=== PATIENT | female | born 1970 | race Caucasian/White ===

== ENCOUNTER 2019-10-15 12:10 | Emergency (ER) | payer OTHER ==
[2019-10-15] MEDS ORDERED: fentaNYL 100 MCG/2 ML SDV IVPUSH ONE ×2 (13:20→15:34)
[2019-10-15] MEDS ORDERED: diphenhydrAMINE 50 MG/ML SDV IV ONE (13:20)
[2019-10-15] MEDS ORDERED: Sodium Chloride 0.9% 10 ML Syringe FLUSH PRN (13:21)
--- NOTE | 2019-10-15 14:25 | EDM.PDOC ---
ED HPI GENERAL MEDICAL PROBLEM - General Chief Complaint: Lower Extremity Injury/Pain Stated Complaint: L foot pain Time Seen by Provider: 10/15/19 12:26 Source of Information: Reports: Patient History Limitations: Reports: No Limitations - History of Present Illness INITIAL COMMENTS - FREE TEXT/NARRATIVE: Left foot pain after stepping in depression in lawn at home. Fell. No other complaints/injuries reported. Unable to bear weight. Left Foot Pain Score (Numeric/FACES): 7 - Related Data Allergies Allergy/AdvReac Type Severity Reaction Status Date / Time hydromorphone [From Dilaudid] Allergy Hives Verified 10/15/19 14:29 ketorolac [From Toradol] Allergy Hives Verified 10/15/19 14:29 oxycodone Allergy Hives Verified 10/15/19 14:29 tramadol Allergy Hives Verified 10/15/19 14:29 Home Meds: Home Meds Codeine Sulfate 15 mg PO Q6HR #10 tab 10/15/19 [Rx] Review of Systems - Review of Systems Review Of Systems: See Below Eyes: Reports: No Symptoms Ears: Reports: No Symptoms Nose: Reports: No Symptoms Mouth/Throat: Reports: No Symptoms Respiratory: Reports: No Symptoms Cardiovascular: Reports: No Symptoms GI/Abdominal: Reports: No Symptoms Genitourinary: Reports: No Symptoms Musculoskeletal: Reports: Foot Pain Skin: Reports: No Symptoms Neurological: Reports: No Symptoms Psychiatric: Reports: No Symptoms ED EXAM, GENERAL - Physical Exam Exam: See Below Exam Limited By: No Limitations General Appearance: Alert, WD/WN, No Apparent Distress Throat/Mouth: Normal Lips, Normal Voice, No Airway Compromise Head: Atraumatic, Normocephalic Neck: Supple Respiratory/Chest: No Respiratory Distress Extremities: Other (swelling/pain noted midfoot on left side. Ankles and toes nontender. NVI. ) Neurological: Alert, Oriented, Normal Cognition Psychiatric: Normal Affect, Normal Mood Course - Vital Signs Last Recorded V/S: Last Vital Signs Temp 36.8 C 10/15/19 12:11 Pulse 71 10/15/19 12:11 Resp 18 10/15/19 12:11 BP 106/84 10/15/19 12:11 Pulse Ox 96 10/15/19 12:11 - Orders/Labs/Meds Orders: Active Orders 24 hr Category Date Time Status Foot Comp Min 3V Lt [CR] Stat Exams 10/15/19 12:23 Taken Saline Lock Insert [OM.PC] Routine Oth 10/15/19 13:21 Ordered Meds: Medications Discontinued Medications Generic Name Dose Route Start Last Admin Trade Name Freq PRN Reason Stop Dose Admin Diphenhydramine HCl 50 mg 10/15/19 13:20 10/15/19 14:30 Benadryl IV 10/15/19 13:21 50 mg ONETIME ONE Administration Fentanyl 100 mcg 10/15/19 13:20 10/15/19 14:30 Sublimaze IVPUSH 10/15/19 13:21 100 mcg ONETIME ONE Administration Fentanyl 100 mcg 10/15/19 15:34 10/15/19 16:40 Sublimaze IVPUSH 10/15/19 15:35 100 mcg ONETIME ONE Administration Sodium Chloride 10 ml 10/15/19 13:21 10/15/19 14:40 Saline Flush FLUSH 10 ml ASDIRECTED PRN Administration Keep Vein Open - Re-Assessments/Exams Free Text/Narrative Re-Assessment/Exam: 10/15/19 14:24 Xray confirmed fractures of metatarsals 2,3,4 left foot. Patient is allergic to all pain meds except fentanyl per her own history. IV Fentanyl and Benadryl ordered. Other pain meds IV and ORal give her itchy rash. No anaphylaxis history reported. 10/15/19 15:23 discussed patient with /[facility]. He recommended a Cam boot and follow up at his clinic next week. She will need surgery. Patient tolerated Fentanyl well. We will cautiously prescribe oral pain medication. She has history of itchy rash with all pain meds as noted above. Reviewed risk/signs of anaphylaxis with patient. She is to take Benadryl with the meds. To D/C meds if more severe reaction noted. To come to ER if any signs of anaphylaxis noted. Departure - Departure Time of Disposition: 17:00 Disposition: Home, Self-Care 01 Condition: Good Clinical Impression: Multiple closed fractures of metatarsal bone of left foot Qualifiers: Encounter type: initial encounter Qualified Code(s): S92.302A - Fracture of unspecified metatarsal bone(s), left foot, initial encounter for closed fracture - Discharge Information *PRESCRIPTION DRUG MONITORING PROGRAM REVIEWED*: Not Applicable *COPY OF PRESCRIPTION DRUG MONITORING REPORT IN PATIENT TRACIE: Not Applicable Prescriptions: Codeine Sulfate 15 mg PO Q6HR #10 tab Instructions: Metatarsal Fracture Referrals: PCP,Unknown [Primary Care Provider] - Forms: ED Department Discharge Additional Instructions: Follow up with from [facility] as scheduled. Wear the BOOT! Be careful with your pain meds. Take Benadryl 1-2 tabs every 6 hours to help prevent/treat itchy rash. If you start developing a more severe reaction stop taking the pain meds. If you notice any swelling of lips/throat or shortness of breath you need to return to the ER for evaluation! Call if you have any questions. Friday 10AM [address] [facility] at the [facility] on 4th floor [phone] Sepsis Event Note (ED) - Evaluation Sepsis Screening Result: No Definite Risk - Focused Exam Vital Signs: Vital Signs Temp Pulse Resp BP Pulse Ox 10/15/19 12:11 36.8 C 71 18 106/84 96 - My Orders Last 24 Hours: My Active Orders 10/15/19 12:23 Foot Comp Min 3V Lt [CR] Stat 10/15/19 13:21 Saline Lock Insert [OM.PC] Routine - Assessment/Plan Last 24 Hours: My Active Orders 10/15/19 12:23 Foot Comp Min 3V Lt [CR] Stat 10/15/19 13:21 Saline Lock Insert [OM.PC] Routine
== END 2019-10-15 17:00 | disposition home or self-care (01) ==
LOC: LL.ED 12:10
DX: S92.322A Displaced fracture of second metatarsal bone, left foot, initial encounter for closed fracture (principal); S92.332A Displaced fracture of third metatarsal bone, left foot, initial encounter for closed fracture; S92.342A Displaced fracture of fourth metatarsal bone, left foot, initial encounter for closed fracture; Z88.5 Allergy status to narcotic agent; Z88.6 Allergy status to analgesic agent; W19.XXXA Unspecified fall, initial encounter; Y92.009 Unspecified place in unspecified non-institutional (private) residence as the place of occurrence of the external cause
CPT/HCPCS: 73630; 96374; 96375; 96376; 99283; J1200; J3010

== ENCOUNTER 2019-11-10 11:54 | Emergency (ER) | payer SELFPAY ==
--- NOTE | 2019-11-10 12:02 | EDM.PDOC ---
ED HPI GENERAL MEDICAL PROBLEM - General Chief Complaint: Allergic Reaction Stated Complaint: hives Time Seen by Provider: 11/10/19 11:55 Source of Information: Reports: Patient, Old Records ([facility] EMR. No paper hospital chart available.) History Limitations: Reports: No Limitations - History of Present Illness INITIAL COMMENTS - FREE TEXT/NARRATIVE: The patient was brought to the emergency room via private automobile by her for evaluation of progressive diffuse generalized hives with no known change in allergen exposure. The patient was started on Flexeril by her orthopedic surgeon yesterday secondary to nonspecific postoperative left foot spasms, however note the patient states that her hives actually started on 11/08/2019 at about 22:00 hours. She has been taking 25 mg of Benadryl on an every 4 hour basis with last dose at about 8 AM with no improvement in her symptoms. She denies any dysphagia, wheezing, dyspnea, facial angioedema, etc. Her last dose of Tylenol was 1000 mg at 3 AM with 600 mg of ibuprofen at 8 AM. She has been taking ibuprofen and Tylenol on a regular basis since her surgery on 10/25/2019 with previous history of hives with Toradol therapy. Note that the patient was also started on aspirin as DVT prophylaxis by her orthopedic surgeon. The patient denies any chest pain/pressure, heart flutter, dizziness, orthostasis, orthopnea, diaphoresis, paresthesias, recent decreased exercise tolerance, or any other anginal-type symptoms. No recent history of abdominal pain, heartburn, nausea, diarrhea, melena, gross hematochezia, or any food intolerance, including fatty foods, etc.. The patient also denies any recent fever, cough, wheezing, dyspnea, etc.. She continues to complain of 7/10 left foot postoperative pain with no history of reinjury, etc. Onset: Gradual Onset Date: 11/08/19 Onset Time: 22:00 Duration: Constant, Getting Worse Location: Reports: Generalized Quality: Reports: Burning, Same as Previous Episode Severity: Moderate (Diffuse hives) Improves with: Reports: None Worsens with: Reports: None Context: Reports: Other (As above). Denies: Sick Contact, Trauma Associated Symptoms: Reports: Rash. Denies: Confusion, Chest Pain, Cough, Diaphoresis, Fever/Chills, Headaches, Loss of Appetite, Malaise, Nausea/Vo miting, Shortness of Breath, Syncope, Weakness Treatments [employer]: Reports: Acetaminophen, NSAIDS, Other Medication(s) Left Foot Pain Score (Numeric/FACES): 7 - Related Data Allergies Allergy/AdvReac Type Severity Reaction Status Date / Time hydromorphone [From Dilaudid] Allergy Hives Verified 11/10/19 12:02 Influenza Virus Vaccines Allergy Other Verified 11/10/19 12:23 ketorolac [From Toradol] Allergy Hives Verified 11/10/19 12:02 NSAIDS (Non-Steroidal Allergy Hives Verified 11/10/19 12:23 Anti-Inflamma oxycodone Allergy Hives Verified 11/10/19 12:02 tramadol Allergy Hives Verified 11/10/19 12:02 Home Meds: Home Meds Ascorbate Calcium [Vitamin C] 500 mg PO DAILY 11/10/19 [History] Cholecalciferol (Vitamin D3) [Vitamin D3] 2,000 unit PO DAILY 11/10/19 [History] Citalopram Hydrobromide [Celexa] 40 mg PO DAILY 11/10/19 [History] Cyclobenzaprine [Flexeril] 10 mg PO BEDTIME PRN 11/10/19 [History] Famotidine [Pepcid] 20 mg PO BID #30 tab 11/10/19 [Rx] buPROPion [Wellbutrin SR] 150 mg PO DAILY 11/10/19 [History] predniSONE [Prednisone] 10 mg PO BIDMEALS #20 tab.ds.pk 11/10/19 [Rx] Past Medical History HEENT History: Reports: Impaired Vision, Other (See Below). Denies: Allergic Rhinitis, Hard of Hearing, Otitis Media Other HEENT History: Patient wears glasses Cardiovascular History: Reports: Other (See Below). Denies: Afib, Aneurysm, Arrhythmia, Blood Clots/VTE/DVT, CAD, Heart Murmur, High Cholesterol, Hypertension, ND, PVD, Syncope Other Cardiovascular History: She does not know her cholesterol status. Respiratory History: Reports: None, Intubation, Previous. Denies: Asthma, COPD, Intubation, Difficult Gastrointestinal History: Reports: GERD Genitourinary History: Reports: None STAGE ELECTRICIAN History: Reports: Dysfunctional Uterine Bleeding, Fibroids, , Spontaneous : 7 Para: 2 LMP (Approximate): Other (See Below) Other STAGE ELECTRICIAN History: Surgical menopause as below. Note SAB during first t rimester x5 with only one requiring a D&C. Musculoskeletal History: Reports: Arthritis, Back Pain, Chronic, Fracture, Neck Pain, Chronic, Osteoarthritis, Other (See Below) Other Musculoskeletal History: Left foot distal second, third, and fourth metatarsal fractures on 10/14/2012 requiring surgery as below. In addition history of SIRVA in her left shoulder secondary to previous influenza booster in 2018 requiring surgeries as below. Neurological History: Reports: Concussion, Head Trauma, Other (See Below). Denies: CVA, Seizure Other Neuro History: Multiple head concussions including a minimum of 4. Psychiatric History: Reports: Anxiety, Depression Endocrine/Metabolic History: Reports: Obesity/BMI 30+. Denies: Diabetes, Gestational, Diabetes, Type I, Diabetes, Type II, Diabetes Mellitus, Type 3c, Hypothyroidism, IDDM - Infectious Disease History Infectious Disease History: Reports: Chicken Pox. Denies: C-Difficile, Measles, Meningitis, Mononucleosis, MRSA, Mumps, Rubella, Shingles, TB, VRE - Past Surgical History Head Surgeries/Procedures: Reports: None HEENT Surgical History: Reports: Oral Surgery, Other (See Below). Denies: Adenoidectomy, Myringotomy w Tube(s), Tonsillectomy Other HEENT Surgeries/Procedures: [place] teeth extraction x2 at about age 14. Cardiovascular Surgical History: Reports: None GI Surgical History: Reports: Bariatric Procedure, Cholecystectomy, EGD, Other (See Below). Denies: Appendectomy, Colonoscopy Other GI Surgeries/Procedures: Initial gastric stapling in 1996 with repeat procedure 1997 and eventual Melinda-en-Y gastric bypass in 2004 with cholecystectomy during 1 of those surgeries by her history. EGD in 2017. Female Surgical History: Reports: D&C, Dilitation & Evacuation, Hysterectomy, Salpingo-Oophorectomy, Other (See Below) Other Female Surgeries/Procedures: D&C for 1 of her SABs in the past as above. Complete hysterectomy including bilateral salpingo-oophorectomy secondary to dysfunctional uterine bleeding and uterine fibroids in 2014. Neurological Surgical History: Reports: None Musculoskeletal Surgical History: Reports: ORIF, Shoulder Surgery, Other (See Below) Other Musculoskeletal Surgeries/Procedures:: Arthroscopic left shoulder surgery initially in 2018 secondary to SIRVA as above with repeat arthroscopic surgery required on 08/06/2018. ORIF of left foot second, third, and fourth metatarsal fractures on 10/25/2019. - Past Imaging History Past Imaging History: Reports: MRI (Multiple MRIs of the left shoulder since 2018.), Ultrasound (OB ultrasounds.) Social & Family History - Tobacco Use Smoking Status *Q: Former Smoker Tobacco Use Within Last Twelve Months: Cigarettes Years of Tobacco use: 27 Packs/Tins Daily: 0.2 Packs/Tins Daily Comment: Patient started smoking at age 22 with average use of 2-3 cigarettes/day. She did quit smoking 3 weeks ago. Used Tobacco, but Quit: Yes Smoking Cessation Information Provided To Patient: No Second Hand Smoke Exposure: No Second Hand Smoke Education Provided: No - Caffeine Use Caffeine Use: Reports: Coffee (24 cups/day), Soda (1 soda per week). Denies: Energy Drinks, Tea - Alcohol Use Alcohol Use History: No Days Per Week of Alcohol Use: 0 Number of Drinks Per Day: 0 Number of Drinks Per Day Comment: No previous DWIs, problems with alcohol abuse, etc. 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 ED EXAM GENERAL NO PERIP PULSE - Physical Exam Exam: See Below Exam Limited By: No Limitations General Appearance: Alert, WD/WN, No Apparent Distress, Anxious (Mild) Eye Exam: Bilateral Eye: EOMI, Normal Inspection, PERRL, Other (No facial angioedema) Ears: Normal External Exam, Normal Canal, Hearing Grossly Normal, Normal TMs Nose: Normal Inspection, Normal Mucosa, No Blood Throat/Mouth: Normal Inspection, Normal Lips, Normal Teeth, Normal Gums, Normal Oropharynx, Normal Voice, No Airway Compromise, Other (No facial angioedema, uvular swelling, etc.). No: Dysphagia, Inflammation, Perioral Cyanosis Head: Atraumatic, Normocephalic. No: Facial Swelling, Facial Tenderness, Sinus Tenderness Neck: Normal Inspection, Supple, Non-Tender, Full Range of Motion. No: Lymphadenopathy (L), Lymphadenopathy (R), Thyromegaly Respiratory/Chest: No Respiratory Distress, Lungs Clear, Normal Breath Sounds, No Accessory Muscle Use, Chest Non-Tender. No: Pleural Rub, Retractions Cardiovascular: Normal Peripheral Pulses, Regular Rate, Rhythm, No Edema, No Gallop, No JVD, No Murmur, No Rub. No: Gallop/S3, Gallop/S4, Friction Rub GI/Abdominal: Normal Bowel Sounds, Soft, Non-Tender, No Organomegaly, No Distention, No Abnormal Bruit, No Mass, Other (Obese). No: Guarding (Female) Exam: Deferred Rectal (Female) Exam: Deferred Back Exam: Normal Inspection, Full Range of Motion. No: CVA Tenderness (L), CVA Tenderness (R), Muscle Spasm Extremities: Normal Inspection, Normal Range of Motion, Non-Tender, No Pedal Edema, Normal Capillary Refill. No: Pedal Edema, Josiah's Sign Neurological: Alert, Oriented, CN II-XII Intact, Normal Cognition, Normal Gait, Normal Reflexes, No Motor/Sensory Deficits Psychiatric: Anxious (Mild). No: Depressed Mood Skin Exam: Rash (Diffuse generalized urticaria including trunk, extremities, and facial region with no angioedema as above). No: Diaphoretic, Wound/Incision Lymphatic: No Adenopathy Course - Vital Signs Last Recorded V/S: Last Vital Signs Temp 37.1 C 11/10/19 11:56 Pulse 90 11/10/19 11:56 Resp 18 11/10/19 11:56 BP 123/80 11/10/19 11:56 Pulse Ox 100 11/10/19 11:56 Vital Signs - 24 hr 11/10/19 11:56 Temperature [ 37.1 C Oral] Pulse, 90 Peripheral [ Pulse Oximetry] Respiratory 18 Rate Blood Pressure 123/80 [Upper Arm] O2 Sat by Pulse 100 Oximetry - Orders/Labs/Meds Orders: Active Orders 24 hr Category Date Time Status Obtain Past Medical Record [OM.PC] Routine Oth 11/10/19 12:03 Active Peripheral IV Insertion Adult [OM.PC] Routine Oth 11/10/19 12:03 Ordered Labs: None Meds: Medications Discontinued Medications Generic Name Dose Route Start Last Admin Trade Name Charleen PRN Reason Stop Dose Admin Diphenhydramine HCl 50 mg 11/10/19 12:03 11/10/19 12:16 Benadryl IVPUSH 11/10/19 12:04 50 mg ONETIME ONE Administration Famotidine 40 mg 11/10/19 12:03 11/10/19 12:20 Pepcid IVPUSH 11/10/19 12:04 40 mg ONETIME ONE Administration Methylprednisolone Sodium Succinate 125 mg 11/10/19 12:03 11/10/19 12:13 Solu-Medrol IVPUSH 11/10/19 12:04 125 mg ONETIME ONE Administration Sodium Chloride 10 ml 11/10/19 12:03 11/10/19 12:20 Saline Flush FLUSH 10 ml ASDIRECTED PRN Administration Keep Vein Open - Radiology Interpretation Free Text/Narrative:: None Departure - Departure Time of Disposition: 12:47 Disposition: Home, Self-Care 01 Condition: Good Clinical Impression: Allergic contact dermatitis due to systemic medicament, Peptic reflux disease, Mixed anxiety depressive disorder Osteoarthritis Qualifiers: Osteoarthritis location: multiple joints Osteoarthritis type: primary Qualified Code(s): M89.49 - Other hypertrophic osteoarthropathy, multiple sites - Discharge Information *PRESCRIPTION DRUG MONITORING PROGRAM REVIEWED*: Not Applicable *COPY OF PRESCRIPTION DRUG MONITORING REPORT IN PATIENT TRACIE: Not Applicable Prescriptions: Famotidine [Pepcid] 20 mg PO BID #30 tab predniSONE [Prednisone] 10 mg PO BIDMEALS #20 tab.ds.pk Referrals: PCP,None [Primary Care Provider] - Additional Instructions: 1. Follow up with your regular provider in 10-14 days as needed, if symptoms persist. Bring these discharge instructions with you to that visit.. 2. Stop use of all NSAIDs, including aspirin, Aleve, ibuprofen, etc. secondary to your allergic reaction to ibuprofen, previous reaction to Toradol, etc. 3. Oatmeal soap/Aveeno baths/showers as needed/directed. Do not use calamine lotion secondary to its drying effects. Do not use topical Benadryl cream secondary to possible secondary contact dermatitis/allergic reaction 4. Sedation precautions with Benadryl with next dose as needed in 4 hours. Note IV Benadryl given in the emergency room with sedation precautions for the next 4-8 hours. 5. Congratulations about stopping smoking and do not restart. 6. Immediately after this visit verify that your cellular telephone's voicemail has been activated and is empty. Also verify that your home telephone's answering machine is operating properly and has space to receive messages. Note that it is sometimes necessary for us to be able to contact you at a later date to discuss your medical care. 7. Please remember that we are ALWAYS here for you and want to answer any questions you may have. Feel free to call the hospital any time and we call you back SIENNA. 8. Do not stop your prednisone earlier secondary to possible adrenal crisis reaction as discussed. Sepsis Event Note (ED) - Focused Exam Vital Signs: Vital Signs Temp Pulse Resp BP Pulse Ox 11/10/19 11:56 37.1 C 90 18 123/80 100 - Problem List & Annotations (1) Allergic contact dermatitis due to systemic medicament SNOMED Code(s): 154704019 Code(s): L23.89 - ALLERGIC CONTACT DERMATITIS DUE TO OTHER AGENTS Status: Acute Priority: High Onset Date: ~11/04/19 Annotation/Comment:: Secondary to previous similar reaction with Toradol patient is likely allergic to NSAIDs. She will discontinue her aspirin and ibuprofen with no further NSAIDs in the future as per discharge instructions. Patient was also instructed to increase her Benadryl to 50 mg p.o. every 4 hours as needed with sedation precautions given. Various therapeutic options were discussed with the patient, who did request IV therapy as above. High-dose IV Pepcid was given in the emergency room with continuation of oral Pepcid as an outpatient both as GI coverage and for treatment for her rash. IV Solu-Medrol given in the emergency room with short course of high-dose oral prednisone. Adrenal crisis precautions were given. (2) Multiple closed fractures of metatarsal bone of left foot SNOMED Code(s): 610717257, 37998181678362389 Code(s): S92.302A - FRACTURE OF UNSP METATARSAL BONE(S), LEFT FOOT, INIT Status: Acute Priority: High Onset Date: 10/15/19 Annotation/Comment:: Note ORIF on 10/25/2019 with follow-up with her orthopedic surgeon as scheduled next week. Tylenol and Flexeril may be continued with patient encouraged to remain nonweightbearing on her left foot, however otherwise remain active as DVT prophylaxis especially in light of discontinuation of her aspirin. Qualifiers: Encounter type: initial encounter Qualified Code(s): S92.302A - Fracture of unspecified metatarsal bone(s), left foot, initial encounter for closed fracture (3) Mixed anxiety depressive disorder SNOMED Code(s): 461178453 Code(s): F41.8 - OTHER SPECIFIED ANXIETY DISORDERS Status: Chronic Priority: Medium Annotation/Comment:: Stable by patient history. Continue to observe closely by her regular providers. (4) Osteoarthritis SNOMED Code(s): 584872371 Code(s): M19.90 - UNSPECIFIED OSTEOARTHRITIS, UNSPECIFIED SITE Status: Chronic Priority: Medium Annotation/Comment:: Otherwise stable by history Qualifiers: Osteoarthritis location: multiple joints Osteoarthritis type: primary Qualified Code(s): M89.49 - Other hypertrophic osteoarthropathy, multiple sites (5) Peptic reflux disease SNOMED Code(s): 091897800 Code(s): K21.9 - GASTRO-ESOPHAGEAL REFLUX DISEASE WITHOUT ESOPHAGITIS Status: Chronic Priority: Medium Annotation/Comment:: Stable by history with known GI problems with recent ibuprofen therapy as above. IV and oral Pepcid therapy as above for now. - Problem List Review Problem List Initiated/Reviewed/Updated: Yes - My Orders Last 24 Hours: My Active Orders 11/10/19 12:03 Obtain Past Medical Record [OM.PC] Routine Peripheral IV Insertion Adult [OM.PC] Routine - Assessment/Plan Last 24 Hours: My Active Orders 11/10/19 12:03 Obtain Past Medical Record [OM.PC] Routine Peripheral IV Insertion Adult [OM.PC] Routine Assessment:: As above Plan: As above. Extensive precautions were given to the patient and her , who are in agreement with the treatment plan.
[2019-11-10] MEDS ORDERED: methylPREDNISolone Sodium Succinate 125 MG/2 ML SDV IVPUSH ONE (12:03)
[2019-11-10] MEDS ORDERED: diphenhydrAMINE 50 MG/ML SDV IVPUSH ONE (12:03)
[2019-11-10] MEDS ORDERED: Famotidine 20 MG/2 ML SDV IVPUSH ONE (12:03)
[2019-11-10] MEDS: Sodium Chloride 0.9% 10 ML Syringe FLUSH PRN ×2 (12:16→12:20)
== END 2019-11-10 12:47 | disposition home or self-care (01) ==
LOC: LL.ED 11:54
DX: L23.3 Allergic contact dermatitis due to drugs in contact with skin (principal); K21.9 Gastro-esophageal reflux disease without esophagitis; F41.8 Other specified anxiety disorders; M89.49 Other hypertrophic osteoarthropathy, multiple sites; E66.9 Obesity, unspecified; Z88.5 Allergy status to narcotic agent; Z88.7 Allergy status to serum and vaccine; Z88.6 Allergy status to analgesic agent; Z88.8 Allergy status to other drugs, medicaments and biological substances; Z79.899 Other long term (current) drug therapy; Z87.891 Personal history of nicotine dependence; Z68.35 Body mass index [BMI] 35.0-35.9, adult
CPT/HCPCS: 96374; 96375; 99283-25; J1200; J2930; J3490

== ENCOUNTER 2019-11-12 20:09 | Emergency (ER) | payer OTHER ==
[2019-11-12] MEDS ORDERED: methylPREDNISolone Acetate 80 MG/ML SDV IM ONE (20:18)
--- NOTE | 2019-11-12 20:18 | EDM.PDOC ---
ED HPI GENERAL MEDICAL PROBLEM - General Chief Complaint: Allergic Reaction Stated Complaint: allergic reaction Time Seen by Provider: 11/12/19 20:10 Source of Information: Reports: Patient, Old Records ([facility] EMR. No paper hospital chart available.) History Limitations: Reports: No Limitations - History of Present Illness INITIAL COMMENTS - FREE TEXT/NARRATIVE: The patient was brought to the emergency room via private automobile by her for evaluation of persistent generalized hives secondary to her NSAID therapy with initial evaluation of the symptoms in this facility by me on 11/10/2019. She was aggressively treated with IV meds in the emergency room at that time and started on high-dose oral prednisone and Pepcid with no improvement of symptoms since that visit. Patient has been compliant with her medical therapy, including discontinuation of aspirin and ibuprofen as previously directed. No history of facial angioedema, dysphagia, other change in allergen exposure, etc. no recent history of abdominal pain, heartburn, nausea, diarrhea, melena, gross hematochezia, or any food intolerance, including fatty foods, etc.. The patient also denies any recent fever, cough, wheezing, dyspnea, etc.. She denies any specific pain or other discomfort. Onset Date: 11/08/19 Duration: Constant. No: Getting Worse Location: Reports: Generalized (Rash) Quality: Reports: Same as Previous Episode Improves with: Reports: None Worsens with: Reports: None Context: Denies: Sick Contact, Trauma Associated Symptoms: Reports: Rash. 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) (As above) - Related Data Allergies Allergy/AdvReac Type Severity Reaction Status Date / Time hydromorphone [From Dilaudid] Allergy Hives Verified 11/10/19 12:02 Influenza Virus Vaccines Allergy Other Verified 11/10/19 12:23 ketorolac [From Toradol] Allergy Hives Verified 11/10/19 12:02 NSAIDS (Non-Steroidal Allergy Hives Verified 11/10/19 12:23 Anti-Inflamma oxycodone Allergy Hives Verified 11/10/19 12:02 tramadol Allergy Hives Verified 11/10/19 12:02 Home Meds: Home Meds Ascorbate Calcium [Vitamin C] 500 mg PO DAILY 11/10/19 [History] Cholecalciferol (Vitamin D3) [Vitamin D3] 2,000 unit PO DAILY 11/10/19 [History] Citalopram Hydrobromide [Celexa] 40 mg PO DAILY 11/10/19 [History] Cyclobenzaprine [Flexeril] 10 mg PO BEDTIME PRN 11/10/19 [History] Famotidine [Pepcid] 20 mg PO BID #30 tab 11/10/19 [Rx] buPROPion [Wellbutrin SR] 150 mg PO DAILY 11/10/19 [History] predniSONE [Prednisone] 10 mg PO BIDMEALS #20 tab.ds.pk 11/10/19 [Rx] Acetaminophen [Pain Reliever] 1,000 mg PO Q6HR PRN 11/12/19 [History] diphenhydrAMINE [Benadryl] 50 mg PO Q4H PRN 11/12/19 [History] Past Medical History HEENT History: Reports: Impaired Vision, Other (See Below). Denies: Allergic Rhinitis, Hard of Hearing, Otitis Media Other HEENT History: Patient wears glasses Cardiovascular History: Reports: Other (See Below). Denies: Afib, Aneurysm, Arrhythmia, Blood Clots/VTE/DVT, CAD, Heart Murmur, High Cholesterol, Hypertension, VA, PVD, Syncope Other Cardiovascular History: She does not know her cholesterol status. Respiratory History: Reports: None, Intubation, Previous. Denies: Asthma, COPD, Intubation, Difficult Gastrointestinal History: Reports: GERD Genitourinary History: Reports: None CHIEF DIETITIAN History: Reports: Dysfunctional Uterine Bleeding, Fibroids, , Spontaneous : 7 Para: 4 LMP (Approximate): Other (See Below) Other CHIEF DIETITIAN History: Surgical menopause as below. Note SAB during first trimester x5 with only one requiring a D&C. Musculoskeletal History: Reports: Arthritis, Back Pain, Chronic, Fracture, Neck Pain, Chronic, Osteoarthritis, Other (See Below) Other Musculoskeletal History: Left foot distal second, third, and fourth metatarsal fractures on 10/14/2012 requiring surgery as below. In addition history of SIRVA in her left shoulder secondary to previous influenza booster in 2018 requiring surgeries as below. Neurological History: Reports: Concussion, Head Trauma, Other (See Below). Denies: CVA, Seizure Other Neuro History: Multiple head concussions including a minimum of 4. Psychiatric History: Reports: Anxiety, Depression Endocrine/Metabolic History: Reports: Obesity/BMI 30+. Denies: Diabetes, Gestational, Diabetes, Type I, Diabetes, Type II, Diabetes Mellitus, Type 3c, Hypothyroidism, IDDM - Infectious Disease History Infectious Disease History: Reports: Chicken Pox. Denies: C-Difficile, Measles, Meningitis, Mononucleosis, MRSA, Mumps, Rubella, Shingles, TB, VRE - Past Surgical History Head Surgeries/Procedures: Reports: None HEENT Surgical History: Reports: Oral Surgery, Other (See Below). Denies: Adenoidectomy, Myringotomy w Tube(s), Tonsillectomy Other HEENT Surgeries/Procedures: [place] teeth extraction x2 at about age 14. Cardiovascular Surgical History: Reports: None GI Surgical History: Reports: Bariatric Procedure, Cholecystectomy, EGD, Other (See Below). Denies: Appendectomy, Colonoscopy Other GI Surgeries/Procedures: Initial gastric stapling in 1996 with repeat procedure 1997 and eventual Melinda-en-Y gastric bypass in 2004 with cholecystectomy during 1 of those surgeries by her history. EGD in 2017. Female Surgical History: Reports: D&C, Dilitation & Evacuation, Hysterectomy, Salpingo-Oophorectomy, Other (See Below) Other Female Surgeries/Procedures: D&C for 1 of her SABs in the past as above. Complete hysterectomy including bilateral salpingo-oophorectomy secondary to dysfunctional uterine bleeding and uterine fibroids in 2014. Neurological Surgical History: Reports: None Musculoskeletal Surgical History: Reports: ORIF, Shoulder Surgery, Other (See Below) Other Musculoskeletal Surgeries/Procedures:: Arthroscopic left shoulder surgery initially in 2018 secondary to SIRVA as above with repeat arthroscopic surgery required on 08/06/2018. ORIF of left foot second, third, and fourth metatarsal fractures on 10/25/2019. - Past Imaging History Past Imaging History: Reports: MRI (Multiple MRIs of the left shoulder since 2018.), Ultrasound (OB ultrasounds.) Social & Family History - Tobacco Use Smoking Status *Q: Former Smoker Tobacco Use Within Last Twelve Months: No Years of Tobacco use: 27 Packs/Tins Daily: 0.2 Packs/Tins Daily Comment: Started smoking at age 22 with average use of 2- 3cigarettes/day. She did quit about 3 weeks ago Used Tobacco, but Quit: Yes Smoking Cessation Information Provided To Patient: No Second Hand Smoke Exposure: No - Caffeine Use Caffeine Use: Reports: Coffee (24 cups/day), Soda (1 soda per week). 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 ED EXAM GENERAL NO PERIP PULSE - Physical Exam Exam: See Below Exam Limited By: No Limitations General Appearance: Alert, WD/WN, No Apparent Distress, Anxious (Mild to moderate) Eye Exam: Bilateral Eye: EOMI, Normal Inspection (No nystagmus), PERRL Ears: Normal External Exam, Normal Canal, Hearing Grossly Normal, Normal TMs Nose: Normal Inspection, Normal Mucosa, No Blood Throat/Mouth: Normal Inspection, Normal Lips, Normal Teeth, Normal Gums, Normal Oropharynx, Normal Voice, No Airway Compromise, Other (No uvular swelling or last-oral/facial angioedema). No: Dysphagia, Perioral Cyanosis Head: Atraumatic, Normocephalic. No: Facial Swelling, Facial Tenderness, Sinus Tenderness Neck: Normal Inspection, Supple, Non-Tender, Full Range of Motion. No: Carotid Bruit, Lymphadenopathy (L), Lymphadenopathy (R), Thyromegaly Respiratory/Chest: No Respiratory Distress, Lungs Clear, Normal Breath Sounds, No Accessory Muscle Use, Chest Non-Tender. No: Pleural Rub, Retractions Cardiovascular: Normal Peripheral Pulses, Regular Rate, Rhythm, No Edema, No Gallop, No JVD, No Murmur, No Rub. No: Gallop/S3, Gallop/S4, Friction Rub GI/Abdominal: Normal Bowel Sounds, Soft, Non-Tender, No Organomegaly, No Distention, No Abnormal Bruit, No Mass, Other (Obese). No: Guarding (Female) Exam: Deferred Rectal (Female) Exam: Deferred Back Exam: Normal Inspection, Full Range of Motion. No: CVA Tenderness (L), CVA Tenderness (R), Muscle Spasm Extremities: Leg Pain (Normal postoperative), Other (Left leg/foot in short leg plantar splint). No: Josiah's Sign Neurological: Alert, Oriented, CN II-XII Intact, Normal Cognition, Normal Gait, Normal Reflexes, No Motor/Sensory Deficits Skin Exam: Rash (Generalized confluent urticarial rash somewhat improved from last evaluation) Lymphatic: No Adenopathy Course - Vital Signs Last Recorded V/S: Last Vital Signs Temp 37.2 C 11/12/19 20:12 Pulse 72 11/12/19 20:12 Resp 20 11/12/19 20:12 BP 145/91 H 11/12/19 20:12 Pulse Ox 100 11/12/19 20:12 - Orders/Labs/Meds Orders: Active Orders 24 hr Category Date Time Status Obtain Past Medical Record [OM.PC] Routine Oth 11/12/19 20:18 Active Meds: Medications Discontinued Medications Generic Name Dose Route Start Last Admin Trade Name Charleen PRN Reason Stop Dose Admin Methylprednisolone Acetate 80 mg 11/12/19 20:18 11/12/19 20:33 Depo-Medrol IM 11/12/19 20:19 80 mg ONETIME ONE Administration Departure - Departure Time of Disposition: 21:00 Disposition: Home, Self-Care 01 Condition: Good Clinical Impression: Urticaria, Elevated blood pressure reading, Osteoarthritis, Peptic reflux disease, Mixed anxiety depressive disorder - Discharge Information *PRESCRIPTION DRUG MONITORING PROGRAM REVIEWED*: Not Applicable *COPY OF PRESCRIPTION DRUG MONITORING REPORT IN PATIENT TRACIE: Not Applicable Forms: ED Department Discharge Additional Instructions: 1. Follow up with your regular provider in 10-14 days as needed, if symptoms persist. Bring these discharge instructions with you to that visit.. 2. Continue to stop using all NSAIDs, including aspirin, Aleve, ibuprofen, etc. secondary to your allergic reaction to ibuprofen, previous reaction to Toradol, etc. 3. Oatmeal soap/Aveeno baths/showers as needed/directed. Do not use calamine lotion secondary to its drying effects. Do not use topical Benadryl cream secondary to possible secondary contact dermatitis/allergic reaction 4. Sedation precautions with Benadryl as previously discussed and continue to use this on a regular rather than as needed basis for now. 5. Congratulations about stopping smoking and do not restart. 6. Immediately after this visit verify that your cellular telephone's voicemail has been activated and is empty. Also verify that your home telephone's answering machine is operating properly and has space to receive messages. Note that it is sometimes necessary for us to be able to contact you at a later date to discuss your medical care. 7. Please remember that we are ALWAYS here for you and want to answer any questions you may have. Feel free to call the hospital any time and we call you back SIEN[place]. 8. Do not stop your prednisone earlier secondary to possible adrenal crisis reaction as discussed. 9. Secondary to possible COVID exposure in this facility, no apparent COVID testing prior to your recent surgery, and refractory rash as above follow-up at the [facility] outpatient COVID screening clinic on 11/14 at about 2:30 PM. 10. Maintain recommended quarantine until you have been notified of today's COVID-19 test results as discussed with return to previous social distancing, use of masks, etc., thereafter as per current recommended CDC guidelines Sepsis Event Note (ED) - Evaluation Sepsis Screening Result: No Definite Risk - Focused Exam Vital Signs: Vital Signs Temp Pulse Resp BP Pulse Ox 11/12/19 20:12 37.2 C 72 20 145/91 H 100 - Problem List & Annotations (1) Allergic contact dermatitis due to systemic medicament SNOMED Code(s): 876596436 Code(s): L23.89 - ALLERGIC CONTACT DERMATITIS DUE TO OTHER AGENTS Status: Acute Priority: High Onset Date: ~11/04/19 Annotation/Comment:: Secondary to previous similar reaction with Toradol patient is likely allergic to NSAIDs. She will discontinue her aspirin and ibuprofen with no further NSAIDs in the future as per discharge instructions. Patient was also instructed to increase her Benadryl to 50 mg p.o. every 4 hours as needed with sedation precautions given. Various therapeutic options were discussed with the patient, who did request IV therapy as above. High-dose IV Pepcid was given in the emergency room with continuation of oral Pepcid as an outpatient both as GI coverage and for treatment for her rash. IV Solu-Medrol given in the emergency room with short course of high-dose oral prednisone. Adrenal crisis precautions were given. (2) Urticaria SNOMED Code(s): 701529132 Code(s): L50.9 - URTICARIA, UNSPECIFIED Status: Acute Priority: High Onset Date: 11/04/19 Annotation/Comment:: Refractory likely allergic reaction to medications as above, however note cannot rule out possible COVID reaction. Isolation precautions, COVID testing, etc. as per discharge instructions. (3) Mixed anxiety depressive disorder SNOMED Code(s): 050797371 Code(s): F41.8 - OTHER SPECIFIED ANXIETY DISORDERS Status: Chronic Priority: Medium Annotation/Comment:: Stable by patient history. Continue to observe closely by her regular providers. (4) Osteoarthritis SNOMED Code(s): 445769550 Code(s): M19.90 - UNSPECIFIED OSTEOARTHRITIS, UNSPECIFIED SITE Status: Chronic Priority: Medium Annotation/Comment:: Otherwise stable by history Qualifiers: Osteoarthritis location: multiple joints Osteoarthritis type: primary Qualified Code(s): M89.49 - Other hypertrophic osteoarthropathy, multiple sites (5) Peptic reflux disease SNOMED Code(s): 723604106 Code(s): K21.9 - GASTRO-ESOPHAGEAL REFLUX DISEASE WITHOUT ESOPHAGITIS Status: Chronic Priority: Medium Annotation/Comment:: Stable by history with no GI problems with recently initiated prednisone therapy as above. Continue oral Pepcid therapy as above for now. (6) Elevated blood pressure reading SNOMED Code(s): 14304602 Code(s): R03.0 - ELEVATED BLOOD-PRESSURE READING, W/O DIAGNOSIS OF HTN Status: Acute Priority: Medium Onset Date: 11/12/19 Annotation/Comment:: Elevated blood pressure today with no previous history of hypertension and normal blood pressure at time of ER evaluation on 11/10/2019. Observe for now. - Problem List Review Problem List Initiated/Reviewed/Updated: Yes - My Orders Last 24 Hours: My Active Orders 11/12/19 20:18 Obtain Past Medical Record [OM.PC] Routine - Assessment/Plan Last 24 Hours: My Active Orders 11/12/19 20:18 Obtain Past Medical Record [OM.PC] Routine Assessment:: As above Plan: As above. Extensive precautions were given to the patient, who is in agreement with the treatment plan. See Patient Instructions for further treatment and plan.
== END 2019-11-12 20:55 | disposition home or self-care (01) ==
LOC: LL.ED 20:09
DX: L50.9 Urticaria, unspecified (principal); M19.90 Unspecified osteoarthritis, unspecified site; K27.9 Peptic ulcer, site unspecified, unspecified as acute or chronic, without hemorrhage or perforation; F41.8 Other specified anxiety disorders; K21.9 Gastro-esophageal reflux disease without esophagitis; E66.9 Obesity, unspecified; Z68.34 Body mass index [BMI] 34.0-34.9, adult; Z87.891 Personal history of nicotine dependence; Z88.5 Allergy status to narcotic agent; Z88.7 Allergy status to serum and vaccine; Z88.6 Allergy status to analgesic agent; Z79.899 Other long term (current) drug therapy
CPT/HCPCS: 96372; 99282; J1040

== ENCOUNTER 2020-11-12 22:10 | Emergency (ER) | payer OTHER ==
[2020-11-12] MEDS ORDERED: fentaNYL 50 MCG/ML SDV ONE (22:21)
[2020-11-12] MEDS ORDERED: Ondansetron 4 MG/2 ML SDV ONE (22:21)
[2020-11-12] MEDS ORDERED: fentaNYL 50 MCG/ML SDV IVPUSH ONE (22:35)
[2020-11-12] MEDS ORDERED: Ondansetron 4 MG/2 ML SDV IVPUSH ONE (22:35)
[2020-11-12] MEDS ORDERED: Sodium Chloride 0.9% 1,000 ML IV ONE (22:37)
[2020-11-12] MEDS ORDERED: Sodium Chloride 0.9% 10 ML Syringe FLUSH PRN (22:38)
--- NOTE | 2020-11-12 22:41 | EDM.PDOC ---
ED HPI GENERAL MEDICAL PROBLEM - General Chief Complaint: General Stated Complaint: right flank pain Time Seen by Provider: 11/12/20 22:25 Source of Information: Reports: Patient History Limitations: Reports: No Limitations - History of Present Illness INITIAL COMMENTS - FREE TEXT/NARRATIVE: She presents to the emergency department complaining of right flank pain. She had some aching pain throughout the day and burning pain with urination, but about an hour prior to arrival developed much more severe pain in the right flank. She reports 10/10 pain on arrival. She denies any urine output for the past 3 hours. She has not noted any blood in the urine. No fever or chills. Positive nausea. No vomiting. She has a history of recurrent problems with kidney stones. Last episode was 2 to 3 years ago. No chest pain or tightness. No shortness of breath. No other recent illness. She has a history of anxiety. No other underlying medical problems. Multiple allergies to pain medications. - Related Data Allergies Allergy/AdvReac Type Severity Reaction Status Date / Time hydromorphone [From Dilaudid] Allergy Hives Verified 11/12/20 22:34 Influenza Virus Vaccines Allergy Other Verified 11/12/20 22:34 ketorolac [From Toradol] Allergy Itching Verified 11/12/20 22:34 NSAIDS (Non-Steroidal Allergy Hives Verified 11/12/20 22:34 Anti-Inflamma oxycodone Allergy Hives Verified 11/12/20 22:34 tramadol Allergy Hives Verified 11/12/20 22:34 Home Meds: Home Meds Citalopram Hydrobromide [Celexa] 40 mg PO DAILY 11/10/19 [History] buPROPion [Wellbutrin SR] 150 mg PO DAILY 11/10/19 [History] Acetaminophen/Diphenhydramine [Tylenol Pm Ex-Strength Caplet] 2 tab PO ASDIRECTED 11/12/20 [History] Past Medical History HEENT History: Reports: Impaired Vision, Other (See Below). Denies: Allergic Rhinitis, Hard of Hearing, Otitis Media Other HEENT History: Patient wears glasses Cardiovascular History: Reports: Other (See Below). Denies: Afib, Aneurysm, Arrhythmia, Blood Clots/VTE/DVT, CAD, Heart Murmur, High Cholesterol, Hypertension, MT, PVD, Syncope Other Cardiovascular History: She does not know her cholesterol status. Respiratory History: Reports: None, Intubation, Previous. 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 Note SAB during first trimester x5 with only one requiring a D&C. Musculoskeletal History: Reports: Arthritis, Back Pain, Chronic, Fracture, Neck Pain, Chronic, Osteoarthritis, Other (See Below) Other Musculoskeletal History: Left foot distal second, third, and fourth metatarsal fractures on 10/14/2012 requiring surgery as below. In addition history of SIRVA in her left shoulder secondary to previous influenza booster in 2018 requiring surgeries as below. Neurological History: Reports: Concussion, Head Trauma, Other (See Below). Denies: CVA, Seizure Other Neuro History: Multiple head concussions including a minimum of 4. Psychiatric History: Reports: Anxiety, Depression Endocrine/Metabolic History: Reports: Obesity/BMI 30+. Denies: Diabetes, Gestational, Diabetes, Type I, Diabetes, Type II, Diabetes Mellitus, Type 3c, Hypothyroidism, IDDM - Infectious Disease History Infectious Disease History: Reports: Chicken Pox. Denies: C-Difficile, Measles, Meningitis, Mononucleosis, MRSA, Mumps, Rubella, Shingles, TB, VRE - Past Surgical History Head Surgeries/Procedures: Reports: None HEENT Surgical History: Reports: Oral Surgery, Other (See Below). Denies: Adenoidectomy, Myringotomy w Tube(s), Tonsillectomy Other HEENT Surgeries/Procedures: [place] teeth extraction x2 at about age 14. Cardiovascular Surgical History: Reports: None GI Surgical History: Reports: Bariatric Procedure, Cholecystectomy, EGD, Other (See Below). Denies: Appendectomy, Colonoscopy Other GI Surgeries/Procedures: Initial gastric stapling in 1996 with repeat procedure 1997 and eventual Meil[place]-en-Y gastric bypass in 2004 with cholecy stectomy during 1 of those surgeries by her history. EGD in 2017. Female Surgical History: Reports: D&C, Dilitation & Evacuation, Hysterectomy, Salpingo-Oophorectomy, Other (See Below) Other Female Surgeries/Procedures: D&C for 1 of her SABs in the past as above. Complete hysterectomy including bilateral salpingo-oophorectomy secondary to dysfunctional uterine bleeding and uterine fibroids in 2015. Neurological Surgical History: Reports: None Musculoskeletal Surgical History: Reports: ORIF, Shoulder Surgery, Other (See Below) Other Musculoskeletal Surgeries/Procedures:: Arthroscopic left shoulder surgery initially in 2018 secondary to SIRVA as above with repeat arthroscopic surgery required on 08/06/2018. ORIF of left foot second, third, and fourth metatarsal fractures on 10/25/2019. - Past Imaging History Past Imaging History: Reports: MRI (Multiple MRIs of the left shoulder since 2018.), Ultrasound (OB ultrasounds.) Social & Family History - Caffeine Use Caffeine Use: Reports: Coffee (24 cups/day), Soda (1 soda per week). 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 Denies: Abdominal Pain, Diarrhea, Vomiting : Reports: Dysuria, Flank Pain. Denies: Hematuria Neurological: Denies: Confusion, Dizziness Psychiatric: Reports: Anxiety ED EXAM, GENERAL - Physical Exam Exam: See Below Exam Limited By: No Limitations General Appearance: Alert, WD/WN, Mild Distress Respiratory/Chest: No Respiratory Distress, Lungs Clear, Normal Breath Sounds Cardiovascular: Regular Rate, Rhythm, No Murmur GI/Abdominal: Normal Bowel Sounds, Soft, Non-Tender, No Mass Back Exam: CVA Tenderness (R). No: CVA Tenderness (L) Neurological: Alert, Oriented Psychiatric: Normal Affect, Normal Mood Skin Exam: Warm, Dry Course - Orders/Labs/Meds Orders: Active Orders 24 hr Category Date Time Status Sodium Chloride 0.9% [Normal Saline] 1,000 ml Med 11/12/20 22:37 Active IV .BOLUS Sodium Chloride 0.9% [Saline Flush] Med 11/12/20 22:38 Active 10 ml FLUSH ASDIRECTED PRN Medication Orders Sodium Chloride (Normal Saline) 1,000 mls @ 999 mls/hr IV .BOLUS ONE Stop: 11/12/20 23:37 Last Admin: 11/12/20 22:38 Dose: 999 mls/hr Documented by: SHANNAN Sodium Chloride (Sodium Chloride 0.9% 10 Ml Syringe) 10 ml FLUSH ASDIRECTED PRN PRN Reason: Other Last Admin: 11/12/20 22:45 Dose: 10 ml Documented by: SHANNAN Labs: Laboratory Tests 11/12/20 11/12/20 11/12/20 Range/Units 22:30 22:30 22:55 WBC 7.1 (4.0-10.2) K/uL RBC 4.32 (3.77-5.09) M/uL Hgb 12.4 (11.7-15.5) g/dL Hct 38.3 (34.0-46.0) % MCV 88.7 (84.0-98.0) fL MCH 28.7 (28.2-33.3) pg MCHC 32.4 (31.7-36.0) g/dL RDW 12.9 (11.2-14.1) % Plt Count 246 (150-350) K/uL Neut % (Auto) 42.0 L (45.0-80.0) % Lymph % (Auto) 43.1 (10.0-50.0) % [place] % (Auto) 12.2 (2.0-14.0) % Eos % (Auto) 2.3 (0.0-5.0) % Baso % (Auto) 0.4 (0.0-2.0) % Neut # (Auto) 2.96 (1.40-7.00) K/uL Lymph # (Auto) 3.04 (0.50-3.50) K/uL [place] # (Auto) 0.86 (0.00-1.00) K/uL Eos # (Auto) 0.16 (0.00-0.50) K/uL Baso # (Auto) 0.03 (0.00-0.20) K/uL Sodium 146 H (136-145) mmol/L Potassium 3.8 (3.5-5.1) mmol/L Chloride 113 H (98-107) mmol/L Carbon Dioxide 21.7 (21.0-32.0) mmol/L Anion Gap 15.1 H (7-15) meq/L BUN 12 (7-18) mg/dL Creatinine 0.89 (0.51-1.17) mg/dL Est Cr Clr Drug Dosing TNP Estimated GFR (MDRD) > 60 mL/min Glucose 69 L (70-99) mg/dL Calcium 8.1 L (8.5-10.1) mg/dL Total Bilirubin 0.4 (0.2-1.0) mg/dL AST 18 (15-37) U/L ALT 31 (12-78) U/L Alkaline Phosphatase 116 (46-116) IU/L Total Protein 6.8 (6.4-8.2) g/dL Albumin 3.7 (3.4-5.0) g/dL Specimen Type Urinvoid Urine Color Yellow Urine Appearance Slightly cloudy Urine pH 6.0 (5.0-9.0) Ur Specific [place] >= 1.030 (1.005-1.030) Urine Protein Negative (NEGATIVE) mg/dL Urine Glucose (UA) Negative (NEGATIVE) mg/dL Urine Ketones Negative (NEGATIVE) mg/dL Urine Occult Blood Large H (NEGATIVE) Urine Nitrite Negative (NEGATIVE) Urine Bilirubin Negative (NEGATIVE) Urine Urobilinogen 0.2 (0.2-1.0) E.U./dL Ur Leukocyte Esterase Negative (NEGATIVE) Urine RBC >100 H /HPF Urine WBC 0-5 /HPF Ur Epithelial Cells Few /LPF Urine Bacteria Rare (NONE TO FEW) /HPF Urine Mucus Many H (NEGATIVE) /LPF Meds: Medications Generic Name Dose Route Start Last Admin Trade Name Freq PRN Reason Stop Dose Admin Sodium Chloride 1,000 mls @ 999 mls/hr 11/12/20 22:37 11/12/20 22:38 Normal Saline IV 11/12/20 23:37 999 mls/hr .BOLUS ONE Administration Sodium Chloride 10 ml 11/12/20 22:38 11/12/20 22:45 Sodium Chloride 0.9% 10 Ml Syringe FLUSH 10 ml ASDIRECTED PRN Administration Other Discontinued Medications Generic Name Dose Route Start Last Admin Trade Name Freq PRN Reason Stop Dose Admin Fentanyl Confirm 11/12/20 22:21 11/12/20 22:43 Fentanyl 50 Mcg/Ml Sdv Administered 11/12/20 22:22 Not Given Dose 50 mcg .ROUTE .STK-MED ONE Fentanyl 50 mcg 11/12/20 22:35 11/12/20 22:36 Fentanyl 50 Mcg/Ml Sdv IVPUSH 11/12/20 22:36 50 mcg ONETIME ONE Administration Ondansetron HCl Confirm 11/12/20 22:21 11/12/20 22:43 Ondansetron 4 Mg/2 Ml Sdv Administered 11/12/20 22:22 Not Given Dose 4 mg .ROUTE .STK-MED ONE Ondansetron HCl 4 mg 11/12/20 22:35 11/12/20 22:36 Ondansetron 4 Mg/2 Ml Sdv IVPUSH 11/12/20 22:36 4 mg ONETIME ONE Administration - Re-Assessments/Exams Free Text/Narrative Re-Assessment/Exam: 11/12/20 23:32 Urine is positive for blood and with her history, there is an apparent renal calculi on the right side. Unable to do a CT scan tonight because the scanner is down, but she does have normal kidney function. We will discharged home with follow-up as an outpatient. Departure - Departure Time of Disposition: 23:45 Disposition: Home, Self-Care 01 Condition: Good Clinical Impression: Renal calculus, right - Discharge Information *PRESCRIPTION DRUG MONITORING PROGRAM REVIEWED*: Yes *COPY OF PRESCRIPTION DRUG MONITORING REPORT IN PATIENT TRACIE: No Forms: ED Department Discharge Additional Instructions: Push fluids. Fentanyl patch, 25 mcg. Apply if pain returns and leave on for 3 days. We will schedule CT scan when available. Follow-up with urology. - Problem List & Annotations (1) Renal calculus, right SNOMED Code(s): 62580369 Code(s): N20.0 - CALCULUS OF KIDNEY Status: Acute - My Orders Last 24 Hours: My Active Orders 11/12/20 22:37 Sodium Chloride 0.9% [Normal Saline] 1,000 ml IV .BOLUS 11/12/20 22:38 Sodium Chloride 0.9% [Saline Flush] 10 ml FLUSH ASDIRECTED PRN - Assessment/Plan Last 24 Hours: My Active Orders 11/12/20 22:37 Sodium Chloride 0.9% [Normal Saline] 1,000 ml IV .BOLUS 11/12/20 22:38 Sodium Chloride 0.9% [Saline Flush] 10 ml FLUSH ASDIRECTED PRN Plan: Discharged to home with a fentanyl patch 25 mcg to be applied if needed. If she needs additional patches will need to call for refills. Will schedule CT scan of the abdomen and pelvis and urology evaluation. Push fluids.
[2020-11-12 22:55] LABS: CHLORIDE,CL 113 mmol/L (98-107); SODIUM,NA 146 mmol/L (136-145)
[2020-11-12 22:59] LABS: ANION GAP 15.1 meq/L (7-15)
[2020-11-12] MEDS ORDERED: Tamsulosin 0.4 MG Cap.ER PO ONE (23:43)
[2020-11-12] MEDS ORDERED: fentaNYL 25 MCG/HR Transdermal Patch TRDERM ONE (23:43)
== END 2020-11-13 00:11 | disposition home or self-care (01) ==
LOC: LL.ED 22:10
DX: N20.0 Calculus of kidney (principal); E66.9 Obesity, unspecified; Z68.28 Body mass index [BMI] 28.0-28.9, adult; Z88.5 Allergy status to narcotic agent; Z88.7 Allergy status to serum and vaccine; Z88.6 Allergy status to analgesic agent; Z88.8 Allergy status to other drugs, medicaments and biological substances
CPT/HCPCS: 36415; 80053; 81001; 85025; 96374; 96375; 99284; 99284-25; A9270-GY; J2405; J3010; J7030

== ENCOUNTER 2021-02-12 12:08 | Emergency (ER) | payer OTHER ==
--- NOTE | 2021-02-12 12:19 | EDM.PDOC ---
ED HPI GENERAL MEDICAL PROBLEM - General Chief Complaint: Lower Extremity Injury/Pain Stated Complaint: left foot injury Time Seen by Provider: 02/12/21 12:18 Source of Information: Reports: Patient History Limitations: Reports: No Limitations - History of Present Illness INITIAL COMMENTS - FREE TEXT/NARRATIVE: Narendra is a 51-year-old female who presented to the emergency department with her on 02/12/2021 after a mechanical fall at work. 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 Her past medical history is significant for complex left ankle and foot fracture status post surgical repair x3. She was having difficulty ambulating and pain in her left ankle was 10 out of 10 which is why she presented to the emergency department. She has no other associated symptoms. She did nothing prior to presentation to help symptoms. Rest and avoiding touching it makes it slightly better. Movement makes the pain worse. Pain is similar to when she had fractures of her left ankle previously Onset: Today Duration: Hour(s):, Constant Location: Reports: Lower Extremity, Left Quality: Reports: Sharp, Throbbing Improves with: Reports: Immobilization Worsens with: Reports: Movement Context: Reports: Other (tripped while walking with student) Associated Symptoms: Reports: No Other Symptoms Left Foot Pain Score (Numeric/FACES): 8 Left Anterior Foot Pain Score (Numeric/FACES): 6 - Related Data Allergies Allergy/AdvReac Type Severity Reaction Status Date / Time hydromorphone [From Dilaudid] Allergy Hives Verified 02/12/21 12:10 ketorolac [From Toradol] AdvReac Itching Verified 02/12/21 12:10 NSAIDS (Non-Steroidal AdvReac Hives Verified 02/12/21 12:10 Anti-Inflamma oxycodone AdvReac Hives Verified 02/12/21 12:10 tramadol AdvReac Hives Verified 02/12/21 12:10 Home Meds: Home Meds Citalopram Hydrobromide [Celexa] 40 mg PO DAILY 11/10/19 [History] buPROPion [Wellbutrin SR] 150 mg PO DAILY 11/10/19 [History] Acetaminophen/Diphenhydramine [Tylenol Pm Ex-Strength Caplet] 2 tab PO ASDIRECTED 11/12/20 [History] Past Medical History HEENT History: Reports: Impaired Vision, Other (See Below) Other HEENT History: Patient wears glasses Cardiovascular History: Reports: None Respiratory History: Reports: None, Intubation, Previous Gastrointestinal History: Reports: GERD Genitourinary History: Reports: None 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 Note SAB during first trimester x5 with only one requiring a D&C. Musculoskeletal History: Reports: Arthritis, Back Pain, Chronic, Fracture, Neck Pain, Chronic, Osteoarthritis, Other (See Below) Other Musculoskeletal History: Left foot distal second, third, and fourth metatarsal fractures on 10/14/2012 requiring surgery as below. In addition history of SIRVA in her left shoulder secondary to previous influenza booster in 2018 requiring surgeries as below. Neurological History: Reports: Concussion, Head Trauma, Other (See Below) Other Neuro History: Multiple head concussions including a minimum of 4. Psychiatric History: Reports: Anxiety, Depression Endocrine/Metabolic History: Reports: Obesity/BMI 30+ - Infectious Disease History Infectious Disease History: Reports: Chicken Pox - Past Surgical History Head Surgeries/Procedures: Reports: None HEENT Surgical History: Reports: Oral Surgery, Other (See Below) Other HEENT Surgeries/Procedures: [place] teeth extraction x2 at about age 14. Cardiovascular Surgical History: Reports: None Respiratory Surgical History: Reports: None GI Surgical History: Reports: Bariatric Procedure, Cholecystectomy, EGD, Other (See Below) Other GI Surgeries/Procedures: Initial gastric stapling in 1996 with repeat procedure 1997 and eventual [place]-en-Y gastric bypass in 2004 with cholecystectomy during 1 of those surgeries by her history. EGD in 2016. Female Surgical History: Reports: D&C, Hysterectomy, Salpingo-Oophorectomy, Other (See Below) Other Female Surgeries/Procedures: D&C for 1 of her SABs in the past as above. Complete hysterectomy including bilateral salpingo-oophorectomy secondary to dysfunctional uterine bleeding and uterine fibroids in 2014. Neurological Surgical History: Reports: None Musculoskeletal Surgical History: Reports: ORIF, Shoulder Surgery, Other (See Below) Other Musculoskeletal Surgeries/Procedures:: Arthroscopic left shoulder surgery initially in 2018 secondary to SIRVA as above with repeat arthroscopic surgery required on 08/06/2018. ORIF of left foot second, third, and fourth metatarsal fractures on 10/25/2019. - Past Imaging History Past Imaging History: Reports: MRI (Multiple MRIs of the left shoulder since 2018.), Ultrasound (OB ultrasounds.) Social & Family History - Family History Family Medical History: No Pertinent Family History - Tobacco Use Tobacco Use Status *Q: Current Every Day Tobacco User Tobacco Use Within Last Twelve Months: Cigarettes Smoking Cessation Information Provided To Patient: Patient Refused Second Hand Smoke Exposure: No Second Hand Smoke Education Provided: No - Tobacco Core Measures Tobacco Use/Smoking Within Last 30 Days: Yes Smoking Frequency Within Last 30 Days: Reports: Five or More Cigarettes Per Day Smokeless Tobacco Use in Last 30 Days: No Desires Tobacco Cessation Medication: Refuses FDA Approved Med - Caffeine Use Caffeine Use: Reports: Tea - Alcohol Use Alcohol Use History: Yes Alcohol Use in Last Twelve Months: Yes Alcohol Use Frequency: Rarely - Recreational Drug Use Recreational Drug Use: No Drug Use in Last 12 Months: No - Sexual History Sexual History: Reports: Single Partner, Opposite Sex Partner (not currently sexually active) - Living Situation & Occupation Living situation: Reports: (Second in 2011.), (First in 1996 with 2 children from that relationship.), with Family 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) Review of Systems - Review of Systems Review Of Systems: See Below Constitutional: Reports: No Symptoms Eyes: Reports: No Symptoms Ears: Reports: No Symptoms Nose: Reports: No Symptoms Mouth/Throat: Reports: No Symptoms Respiratory: Reports: No Symptoms Cardiovascular: Reports: No Symptoms GI/Abdominal: Reports: No Symptoms Genitourinary: Reports: No Symptoms Musculoskeletal: Reports: Foot Pain (left), Other (left knee pain) Skin: Reports: No Symptoms Neurological: Reports: No Symptoms Psychiatric: Reports: No Symptoms ED EXAM, GENERAL - Physical Exam Exam: See Below Exam Limited By: No Limitations General Appearance: Alert, WD/WN, No Apparent Distress Eye Exam: Bilateral Eye: EOMI Ears: Normal External Exam Nose: Normal Inspection Throat/Mouth: Normal Inspection, Normal Voice, No Airway Compromise Head: Atraumatic, Normocephalic Neck: Normal Inspection Respiratory/Chest: No Respiratory Distress, Decreased Breath Sounds (bilateral bases. ) Cardiovascular: Normal Peripheral Pulses, Regular Rate, Rhythm, No Edema, No Gallop, No JVD, No Murmur, No Rub GI/Abdominal: Soft, Non-Tender (Female) Exam: Deferred Rectal (Female) Exam: Deferred Back Exam: Full Range of Motion Extremities: Normal Range of Motion (in left knee. ), No Pedal Edema, Limited Range of Motion (LLE digits 2-3. pain on palpation of dorsum of foot from transmetatarsal distally to tip of left digits 2-3. no inflammation or erythema). No: Joint Swelling, Increased Warmth, Redness Neurological: Alert, Oriented Psychiatric: Normal Affect, Normal Mood Skin Exam: Warm, Dry, Intact Course - Vital Signs Last Recorded V/S: Last Vital Signs Temp 98.1 F 02/12/21 12:08 Pulse 77 02/12/21 12:08 Resp 18 02/12/21 12:08 BP 128/93 H 02/12/21 12:08 Pulse Ox 97 02/12/21 12:08 - Orders/Labs/Meds Orders: Active Orders 24 hr Category Date Time Status Oxygen Therapy [RC] PRN Care 02/12/21 12:27 Active Vital Signs [RC] We@0800 Care 02/12/21 12:27 Active Nothing per Oral Now Diet [DIET] Diet 02/12/21 Breakfast Active Foot 2V Lt [CR] Stat Exams 02/12/21 12:29 Taken Labs: Laboratory Tests 02/12/21 02/12/21 02/12/21 Range/Units 12:45 12:45 12:50 WBC 7.2 (4.0-10.2) K/uL RBC 4.60 (3.77-5.09) M/uL Hgb 13.2 (11.7-15.5) g/dL Hct 40.2 (34.0-46.0) % MCV 87.4 (84.0-98.0) fL MCH 28.7 (28.2-33.3) pg MCHC 32.8 (31.7-36.0) g/dL RDW 13.1 (11.2-14.1) % Plt Count 278 (150-350) K/uL Neut % (Auto) 51.6 (45.0-80.0) % Lymph % (Auto) 38.4 (10.0-50.0) % [place] % (Auto) 8.9 (2.0-14.0) % Eos % (Auto) 0.7 (0.0-5.0) % Baso % (Auto) 0.4 (0.0-2.0) % Neut # (Auto) 3.70 (1.40-7.00) K/uL Lymph # (Auto) 2.75 (0.50-3.50) K/uL [place] # (Auto) 0.64 (0.00-1.00) K/uL Eos # (Auto) 0.05 (0.00-0.50) K/uL Baso # (Auto) 0.03 (0.00-0.20) K/uL Sodium 143 (136-145) mmol/L Potassium 4.1 (3.5-5.1) mmol/L Chloride 107 (98-107) mmol/L Carbon Dioxide 21.6 (21.0-32.0) mmol/L Anion Gap 14.4 (7-15) meq/L BUN 13 (7-18) mg/dL Creatinine 0.93 (0.51-1.17) mg/dL Est Cr Clr Drug Dosing TNP Estimated GFR (MDRD) > 60 mL/min Glucose 94 (70-99) mg/dL Calcium 9.1 (8.5-10.1) mg/dL Total Bilirubin 0.8 (0.2-1.0) mg/dL AST 19 (15-37) U/L ALT 28 (12-78) U/L Alkaline Phosphatase 97 (46-116) IU/L Total Protein 7.7 (6.4-8.2) g/dL Albumin 4.2 (3.4-5.0) g/dL Urine Opiates Screen Negative (NEGATIVE) Ur Buprenorphine Scrn Negative (NEGATIVE) Ur Oxycodone Screen Negative (NEGATIVE) Ur EDDP (Meth Metab) Negative (NEGATIVE) Ur Barbiturates Screen Negative (NEGATIVE) Ur Tricyclics Screen Negative (NEGATIVE) Ur Amphetamine Screen Negative (NEGATIVE) U Methamphetamines Scrn Negative (NEGATIVE) Urine MDMA Screen Negative (NEGATIVE) U Benzodiazepines Scrn Negative (NEGATIVE) U Cocaine Metab Screen Negative (NEGATIVE) U Marijuana (THC) Screen Negative (NEGATIVE) Ethyl Alcohol 0.001 (0.000-0.080) g/dL - Re-Assessments/Exams Free Text/Narrative Re-Assessment/Exam: 02/12/21 12:18 entered room to examine patient 02/12/21 14:41 xr negative for obvious fracture. radiology read still pending. possible soft tissue/ligament damage. place boot for stabilization. rest, ice and elevation for one week then MRI and follow with PCP for further evaluation and treatment. Free Text/Narrative Re-Assessment/Exam: 02/12/21 12:30 pain on palpation of left ankle after trauma. PMH significant for previous complex fracture s/p surgical repair x3. XR ordered with basic labs, UDS and blood etoh given work injury. Departure - Departure Time of Disposition: 14:43 Disposition: Home, Self-Care 01 Condition: Good Clinical Impression: Injury of foot, left - Discharge Information *PRESCRIPTION DRUG MONITORING PROGRAM REVIEWED*: Not Applicable *COPY OF PRESCRIPTION DRUG MONITORING REPORT IN PATIENT TRACIE: Not Applicable Instructions: Foot Sprain Referrals: Linda Palencia TABULATING SUPERVISOR [Primary Care Provider] - Forms: ED Department Discharge Additional Instructions: - acetaminophen 1000mg tid for pain control - rest, elevate and ice (15 minutes on and 45 minutes off for the first 48 hrs) - boot on for stabilization - MRI in one week - follow up with PCP in one week for MRI results and further evaluation/treatment. Sepsis Event Note (ED) - Focused Exam Vital Signs: Vital Signs Temp Pulse Resp BP Pulse Ox 02/12/21 12:08 98.1 F 77 18 128/93 H 97 - Problem List Review Problem List Initiated/Reviewed/Updated: Yes - My Orders Last 24 Hours: My Active Orders 02/12/21 Breakfast Nothing per Oral Now Diet [DIET] 02/12/21 12:27 Oxygen Therapy [RC] PRN Vital Signs [RC] We@0800 02/12/21 12:29 Foot 2V Lt [CR] Stat - Assessment/Plan Last 24 Hours: My Active Orders 02/12/21 Breakfast Nothing per Oral Now Diet [DIET] 02/12/21 12:27 Oxygen Therapy [RC] PRN Vital Signs [RC] We@0800 02/12/21 12:29 Foot 2V Lt [CR] Stat Assessment:: mechanical fall at work while walking Hx of left foot complex fracture s/p surgical repair x3 - XR left foot: negative for acute fracture Plan: - acetaminophen 1000mg tid for pain control - rest, elevate and ice (15 minutes on and 45 minutes off for the first 48 hrs) - boot on for stabilization - MRI in one week - follow up with PCP in one week for MRI results and further evaluation/treatment. - workplace injury form filled out
[2021-02-12 13:11] LABS: ANION GAP 14.4 meq/L (7-15); CHLORIDE,CL 107 mmol/L (98-107); SODIUM,NA 143 mmol/L (136-145)
[2021-02-12 13:14] LABS: BARBITURATE SCREEN,URINE NEGATIVE (NEGATIVE); BENZODIAZEPINES SCREEN,URINE NEGATIVE (NEGATIVE); EDDP,URINE SCREEN NEGATIVE (NEGATIVE); TCA SCREEN,URINE NEGATIVE (NEGATIVE); THC SCREEN,URINE 50 NG/ML NEGATIVE (NEGATIVE)
[2021-02-12 13:16] LABS: BUPRENORPHINE SCREEN,URINE NEGATIVE (NEGATIVE)
== END 2021-02-12 15:02 | disposition home or self-care (01) ==
LOC: LL.ED 12:08
DX: S99.922A Unspecified injury of left foot, initial encounter (principal); E66.9 Obesity, unspecified; Z88.5 Allergy status to narcotic agent; Z88.6 Allergy status to analgesic agent; Z72.0 Tobacco use; X50.1XXA Overexertion from prolonged static or awkward postures, initial encounter; Y92.89 Other specified places as the place of occurrence of the external cause; Y99.0 Civilian activity done for income or pay
CPT/HCPCS: 36415; 73620-LT; 80053; 80305-QW; 80307; 85025; 99283; 99283-25

== ENCOUNTER 2021-04-05 18:32 | Emergency (ER) | payer OTHER ==
[2021-04-05] MEDS ORDERED: Haloperidol Lactate 5 MG/ML SDV IM ONE (18:37)
[2021-04-05] MEDS ORDERED: LORazepam 2 MG/ML SDV IM ONE (18:37)
[2021-04-05 19:41] LABS: BARBITURATE SCREEN,URINE NEGATIVE (NEGATIVE); BENZODIAZEPINES SCREEN,URINE NEGATIVE (NEGATIVE); EDDP,URINE SCREEN NEGATIVE (NEGATIVE); TCA SCREEN,URINE NEGATIVE (NEGATIVE); THC SCREEN,URINE 50 NG/ML NEGATIVE (NEGATIVE)
[2021-04-05 19:43] LABS: BUPRENORPHINE SCREEN,URINE NEGATIVE (NEGATIVE)
[2021-04-05 19:45] LABS: ANION GAP 17.1 meq/L (7-15); CHLORIDE,CL 106 mmol/L (98-107); SODIUM,NA 139 mmol/L (136-145)
[2021-04-05] MEDS ORDERED: Ibuprofen 600 MG Tab PO ONE (20:41)
== END 2021-04-06 18:40 ==
LOC: LL.ED 18:32
DX: S10.93XA Contusion of unspecified part of neck, initial encounter (principal); F32.A Depression, unspecified; K21.9 Gastro-esophageal reflux disease without esophagitis; E66.9 Obesity, unspecified; Z68.30 Body mass index [BMI] 30.0-30.9, adult; Z79.899 Other long term (current) drug therapy; Z88.5 Allergy status to narcotic agent; Z88.8 Allergy status to other drugs, medicaments and biological substances; Z20.822 Contact with and (suspected) exposure to COVID-19; X78.9XXA Intentional self-harm by unspecified sharp object, initial encounter
CPT/HCPCS: 36415; 80053; 80143; 80305; 80307; 81001; 81025; 83735; 84100; 84443; 85025; 87426; 96372; 99285; A9270; J1630; J2060; 99284

== ENCOUNTER 2022-01-27 08:45 | Emergency (ER) | payer OTHER ==
[2022-01-27 09:47] LABS: CORONAVIRUS COVID-19 NAA NEGATIVE (NEGATIVE); RESPIRATORY SYNCYTIAL VIR NAA NEGATIVE (NEGATIVE)
[2022-01-27] MEDS ORDERED: Oseltamivir 75 MG Cap PO ONE (10:00)
[2022-01-27] MEDS ORDERED: Oseltamivir 75 MG Cap ONE (10:05)
[2022-01-27] MEDS ORDERED: Acetaminophen 500 MG Tab PO ONE (10:57)
== END 2022-01-27 11:30 | disposition home or self-care (01) ==
LOC: LL.ED 08:45
DX: J10.1 Influenza due to other identified influenza virus with other respiratory manifestations (principal); E66.9 Obesity, unspecified; Z68.36 Body mass index [BMI] 36.0-36.9, adult; Z88.6 Allergy status to analgesic agent; Z88.1 Allergy status to other antibiotic agents; Z88.5 Allergy status to narcotic agent; Z79.899 Other long term (current) drug therapy; Z90.49 Acquired absence of other specified parts of digestive tract; Z90.710 Acquired absence of both cervix and uterus; Z87.891 Personal history of nicotine dependence; Z20.822 Contact with and (suspected) exposure to COVID-19
CPT/HCPCS: 0241U; 99283; A9270

== ENCOUNTER 2022-02-01 20:06 | Emergency (ER) | payer OTHER ==
[2022-02-01] MEDS ORDERED: Sodium Chloride 0.9% 10 ML Syringe FLUSH PRN (20:32)
[2022-02-01] MEDS: Morphine 2 MG/ML SYRINGE IVPUSH ONE (20:38)
[2022-02-01] MEDS ORDERED: Lactated Ringers 1,000 ML IV SCH (20:45)
[2022-02-01 20:50] LABS: ANION GAP 9.9 meq/L (7-15); CHLORIDE,CL 105 mmol/L (98-107); ESTIMATED GFR 62 mL/min (>=60); SODIUM,NA 141 mmol/L (136-145)
[2022-02-01] MEDS: Lactated Ringers 1,000 ML IV STA (21:00)
[2022-02-01] MEDS: Oxybutynin 5 MG Tab.ER PO ONE (22:08)
== END 2022-02-02 00:10 ==
LOC: LL.ED 20:06
DX: N13.2 Hydronephrosis with renal and ureteral calculous obstruction (principal); N18.2 Chronic kidney disease, stage 2 (mild); K21.9 Gastro-esophageal reflux disease without esophagitis; E66.9 Obesity, unspecified; F17.210 Nicotine dependence, cigarettes, uncomplicated; Z68.30 Body mass index [BMI] 30.0-30.9, adult; Z88.5 Allergy status to narcotic agent; Z79.899 Other long term (current) drug therapy
CPT/HCPCS: 36415; 74176; 80053; 81001; 83605; 83735; 85025; 87086; 96361; 96374; 99284-25; A9270-GY; J2270; J7120

== ENCOUNTER 2022-08-09 19:56 | Emergency (ER) | payer OTHER ==
[2022-08-09] MEDS ORDERED: Lidocaine 1% 5 ML VIAL INJECT ONE (20:00)
[2022-08-09] MEDS: Lidocaine 1% 5 ML VIAL ONE (20:08)
[2022-08-09] MEDS ORDERED: Diphtheria,Pertussis(Acell),Tetanus Vaccine 0.5 ML Syringe IM ONE (20:11)
[2022-08-09] MEDS ORDERED: Bacitracin/Neomycin/Polymyxin B Oint 0.9 GM U/D Packet ONE (20:22)
[2022-08-09] MEDS ORDERED: Bacitracin/Neomycin/Polymyxin B Oint 0.9 GM U/D Packet TOP ONE (20:23)
[2022-08-13] MEDS: Lidocaine 1% 5 ML VIAL ONE (06:10)
== END 2022-08-09 20:35 | disposition home or self-care (01) ==
LOC: LL.ED 19:56
DX: S60.451A Superficial foreign body of left index finger, initial encounter (principal); N18.9 Chronic kidney disease, unspecified; E66.9 Obesity, unspecified; Z23 Encounter for immunization; Z88.5 Allergy status to narcotic agent; Z79.899 Other long term (current) drug therapy; W45.8XXA Other foreign body or object entering through skin, initial encounter
CPT/HCPCS: 10120; 90471; 90715; 99283; 99283-25; J3490

== ENCOUNTER 2022-08-20 12:02 | Emergency (ER) | payer OTHER | END 2022-08-20 13:23 | disposition home or self-care (01) | LOC: LL.ED 12:02 | DX: S89.91XA Unspecified injury of right lower leg, initial encounter (principal); Z88.5 Allergy status to narcotic agent; Z72.0 Tobacco use; W22.09XA Striking against other stationary object, initial encounter | CPT/HCPCS: 73590-RT; 99283 ==